=== PATIENT | male | born 1975 | race African-American/Black ===

== ENCOUNTER 2019-05-04 14:47 | Emergency (ER) | payer MEDICAID ==
[~2019-05-04] VITALS: Ht 185.4 cm; Wt 95.3 kg
[2019-05-04 15:11] VITALS: BP_SYST 146
[2019-05-04 15:58] LABS: BASOPHILS % (AUTO) 0.3 % (0.0-2.0); EOSINOPHILS # (AUTO) 0.2 K/uL (0.0-0.4); EOSINOPHILS % (AUTO) 1.4 % (0.0-4.0); HEMATOCRIT 40.7 % (36-54); HEMOGLOBIN 13.7 g/dL (14.0-18.0); LYMPHOCYTES # (AUTO) 1.6 K/uL (1.0-5.5); LYMPHOCYTES % (AUTO) 13.2 % (20.5-51.5); MEAN CORPUSCULAR HEMOGLOBIN 32 pg (27-31); MEAN CORPUSCULAR HGB CONC 34 % (32-36); MEAN CORPUSCULAR VOLUME 96 fL (79.0-98.0); MONOCYTES % (AUTO) 8.6 % (1.7-9.3); NEUTROPHILS % (AUTO) 76.5 % (40.0-70.0); PLATELET COUNT (AUTO) 331 K/uL (130-430); RED BLOOD CELL COUNT(AUTO) 4.24 MIL/uL (4.2-6.2); RED CELL DISTRIBUTION WIDTH 12.9 % (9.0-15.0); WHITE BLOOD COUNT (AUTO) 11.8 K/uL (4.8-10.8)
[2019-05-04 16:35] LABS: CREATININE 1.16 mg/dL (0.55-1.30); POTASSIUM 4.4 mmol/L (3.5-5.1)
[2019-05-04 16:40] LABS: ALBUMIN 3.5 g/dL (3.4-4.8); C-REACTIVE PROTEIN QUANT 2.5 mg/dL (0-0.5); TOTAL BILIRUBIN 0.2 mg/dL (0.0-1.0)
[2019-05-04 17:14] VITALS: BP_SYST 139
== END 2019-05-04 17:14 | disposition home or self-care (01) ==
LOC: SED 14:47
DX: L03.115 Cellulitis of right lower limb (principal); R03.0 Elevated blood-pressure reading, without diagnosis of hypertension
CPT/HCPCS: 36415; 80053; 83605; 85025; 86140; 99283